=== PATIENT | female | born 1995 | race Two or more races ===

== ENCOUNTER 2016-11-22 19:10 | Emergency (ER) | payer SELFPAY ==
[~2016-11-22] VITALS: Ht 147.3 cm; Wt 50.0 kg
[2016-11-22] MEDS ORDERED: BACITRACIN ZINC OINT UDPKT TOP ONE (21:45)
[2016-11-22 22:25] VITALS: BP 113/74
== END 2016-11-22 22:32 | disposition home or self-care (01) ==
LOC: ER 19:10
DX: S40.212A Abrasion of left shoulder, initial encounter (principal); Y04.0XXA Assault by unarmed brawl or fight, initial encounter; Y99.9 Unspecified external cause status; Y92.89 Other specified places as the place of occurrence of the external cause
CPT/HCPCS: 99283